=== PATIENT | female | born 1970 | race Caucasian/White ===

== ENCOUNTER 2018-05-10 13:35 | Emergency (ER) | payer SELFPAY ==
[~2018-05-10] VITALS: Ht 147.3 cm; Wt 61.2 kg
[~2018-05-10 13:35] MED LIST: IBUP-23 PO
[2018-05-10] MEDS ORDERED: predniSONE 10 MG TABLET PO ONE (14:15)
[2018-05-10] MEDS ORDERED: ALBUTEROL SULFATE 2.5 MG/3 ML NEBU NEB ONE (14:15)
[2018-05-10] MEDS ORDERED: IPRATROPIUM BROMIDE 0.5 MG/2.5 ML NEBU NEB ONE (14:15)
--- NOTE | 2018-05-10 14:15 | NUR ---
PATIENT WAS MSE BY DR SAUCEDO IN ROOM 05A.
[2018-05-10] MEDS ORDERED: predniSONE 20 MG TABLET ONE (14:20)
[2018-05-10] MEDS ORDERED: ALBUTEROL SULFATE 2.5 MG/3 ML NEBU ONE (14:24)
[2018-05-10] MEDS ORDERED: IPRATROPIUM BROMIDE 0.5 MG/2.5 ML NEBU ONE (14:24)
[2018-05-10] MEDS ORDERED: ALBUTEROL SULFATE 2.5 MG/ 0.5 ML NEBU ONE (14:24)
--- NOTE | 2018-05-10 14:27 | NUR ---
ZOE LOPEZ AT BEDSIDE.
[2018-05-10 15:03] VITALS: BP 142/89
--- NOTE | 2018-05-10 15:03 | NUR ---
Pt states feeling better.
--- NOTE | 2018-05-10 15:06 | NUR ---
Patient discharged to home in stable conditon. Written and verbal after care instructions given. Patient verbalizes understanding of instructions.
== END 2018-05-10 15:08 | disposition home or self-care (01) ==
LOC: ER 13:36
DX: J45.909 Unspecified asthma, uncomplicated (principal); Z79.1 Long term (current) use of non-steroidal anti-inflammatories (NSAID)
CPT/HCPCS: 71045; 94644; 99285; J7512; A4663; J3590

== ENCOUNTER 2024-10-11 17:03 | Emergency (ER) | payer SELFPAY ==
[~2024-10-11] VITALS: Ht 152.4 cm; Wt 72.6 kg
[2024-10-11] MEDS ORDERED: ACYC-108 PO (18:08)
[2024-10-11] MEDS ORDERED: PRED2.5T PO (18:08)
[2024-10-11] MEDS ORDERED: LIDO30AD10 TP (18:08)
[2024-10-11] MEDS ORDERED: PRED20TA PO (18:08)
[2024-10-11] MEDS ORDERED: HYDR-3980 PO (18:10)
[2024-10-11] MEDS ORDERED: HYDROCODONE/APAP 10-325 MG TABLET ONE (18:17)
[2024-10-11] MEDS: HYDROCODONE/APAP 10-325 MG TABLET PO ONE (18:21)
[2024-10-11 18:30] VITALS: BP 140/76; O2SAT 100
== END 2024-10-11 18:32 | disposition home or self-care (01) ==
LOC: ER 17:22
DX: B02.9 Zoster without complications (principal); M54.9 Dorsalgia, unspecified
CPT/HCPCS: A4606; A4663